=== PATIENT | male | born 1995 | race African-American/Black ===

== ENCOUNTER 2018-05-01 22:41 | Emergency (ER) | payer MEDICAID, SELFPAY ==
[2018-05-01] MEDS ORDERED: Ondansetron ODT 4 MG TAB ONE (22:57)
[2018-05-01] MEDS ORDERED: Loperamide HCl 2 MG CAP ONE (22:57)
== END 2018-05-01 23:05 | disposition home or self-care (01) ==
LOC: MADERS 22:41
DX: K52.9 Noninfective gastroenteritis and colitis, unspecified (principal); F17.210 Nicotine dependence, cigarettes, uncomplicated
CPT/HCPCS: 99283; Q0162

== ENCOUNTER 2018-11-03 23:27 | Emergency (ER) | payer SELFPAY ==
[2018-11-03] MEDS ORDERED: Adacel (T-DAP) 0.5 ML SYRINGE ONE (23:49)
== END 2018-11-03 23:50 | disposition home or self-care (01) ==
LOC: MADERS 23:27
DX: S01.81XA Laceration without foreign body of other part of head, initial encounter (principal); J45.909 Unspecified asthma, uncomplicated; F17.290 Nicotine dependence, other tobacco product, uncomplicated; Z23 Encounter for immunization; W22.8XXA Striking against or struck by other objects, initial encounter
CPT/HCPCS: 12011; 90471; 90715